=== PATIENT | female | born 1965 | race Caucasian/White ===

== ENCOUNTER → 2020-04-07 | Outpatient (CLI) | payer OTHER ==
[2020-04-07 13:26] LABS: HEMOGLOBIN 14.2 gm/dl (12.3-15.3); RED BLOOD COUNT 4.54 M/UL (4.00-5.10); WHITE BLOOD COUNT 13.1 K/UL (4.5-11.0)
[2020-04-07 13:41] LABS: BUN/CREATININE RATIO 19 (0-10)
[2020-04-08 07:10] LABS: RHEUMATOID ARTHRITIS FACTOR <10.0 IU/mL (0.0-13.9); VITAMIN D, 25-HYDROXY 33.9 ng/mL (30.0-100.0)
[2020-04-08 13:15] LABS: ANTI-CENTROMERE B ANTIBODIES <0.2 AI (0.0-0.9); ANTISCLERODERMA-70 ANTIBODIES <0.2 AI (0.0-0.9); RNP ANTIBODIES <0.2 AI (0.0-0.9); SJOGREN'S ANTI-SS-A <0.2 AI (0.0-0.9); SJOGREN'S ANTI-SS-B <0.2 AI (0.0-0.9); SMITH ANTIBODIES <0.2 AI (0.0-0.9)
[2020-04-09 00:07] LABS: CCP ANTIBODIES IGG/IGA 5 units (0-19)
[2020-04-12 13:14] LABS: ANTIHISTONE ANTIBODIES 0.2 Units (0.0-0.9)
== END ==
LOC: RAD 12:46
PROVIDERS: Nurse Practitioner Family
DX: M25.50 Pain in unspecified joint (principal); D89.9 Disorder involving the immune mechanism, unspecified; R76.8 Other specified abnormal immunological findings in serum; M47.814 Spondylosis without myelopathy or radiculopathy, thoracic region; M47.816 Spondylosis without myelopathy or radiculopathy, lumbar region; K63.89 Other specified diseases of intestine
CPT/HCPCS: 36415; 72070; 72100; 80053; 81001; 82570; 83520; 84156; 84439; 84443; 85025; 86038; 86200; 86235; 86431

== ENCOUNTER → 2020-05-10 | Outpatient (CLI) | payer OTHER | LOC: EXRD 05-02 14:00 | DX: M81.0 Age-related osteoporosis without current pathological fracture (principal) | CPT/HCPCS: 77080 ==